=== PATIENT | female | born 1945 | race African-American/Black ===

== ENCOUNTER 2018-06-21 05:42 | Emergency (ER) | payer OTHER, MEDICAID ==
[~2018-06-21] VITALS: Ht 167.6 cm; Wt 73.5 kg
[~2018-06-21 05:42] MED LIST: ASPIRIN ADULT L81 M1; CALCITRIOL0.25 MCG PO; D PO; KEP500 PO; LASIX40 MG PO; LOP50 PO; NEPHRO-VITE VITA1 EA PO; NEU300 PO; NEURONTIN300 PO; NIFEDICAL XL PO; PILOCARPINE5 MG PO; PRI20 PO; PROAIR HFA0.09 MG/A1; PROCARDIA PO; SIMVASTATIN20 MG PO; SYMBICORT 10.10.2 M1; SYMBICORT1 AE2; T3 PO; TOP100 PO; TUDORZA PR400 MCG/A1 IH; VENTOLIN H0.09 MG/A1; VITAMIN D22000 I1 PO; VITAMIN D22000 IU PO
[2018-06-21 05:50] VITALS: Ht 167.6 cm; Wt 73.5 kg
[2018-06-21 07:15] LABS: PLATELET COUNT 166 x10^3mcL (130-400)
[2018-06-21 07:16] LABS: RED CELL DISTRIBUTION WIDTH 16.2 % (11.5-14.5)
[2018-06-21 07:33] LABS: ALBUMIN 3.6 g/dL (3.4-5.0); BILIRUBIN TOTAL 0.3 mg/dL (0.20-1.00); CALCIUM 8.1 mg/dL (8.5-10.1); CARBON DIOXIDE 26.4 mmol/L (21-32); MAGNESIUM 2.4 mg/dL (1.8-2.4); POTASSIUM SERUM 4.3 mmol/L (3.5-5.1); T4(THYROXINE) 7.3 ug/dL (4.7-13.3); TOTAL PROTEIN, SERUM 7.5 g/dL (6.4-8.2)
[2018-06-21 07:35] LABS: CREATININE SERUM 8.1 mg/dL (0.6-1.0)
[2018-06-21] MEDS ORDERED: CALCITRIOL0.25 MCG PO (07:42)
[2018-06-21] MEDS ORDERED: GABAPENTIN100 M2 PO (07:43)
[2018-06-21] MEDS ORDERED: KEFLEX250 M1 PO (07:43)
[2018-06-21] MEDS ORDERED: KEPPRA500 MG PO (07:43)
[2018-06-21] MEDS ORDERED: METOPROLOL TART50 MG PO (07:44)
[2018-06-21] MEDS ORDERED: SAL5 PO (07:44)
[2018-06-21] MEDS ORDERED: PRO60 PO (07:44)
[2018-06-21] MEDS ORDERED: SIMVASTATIN20 M1 PO (07:45)
[2018-06-21] MEDS ORDERED: TOPAMAX100 MG PO (07:45)
[2018-06-21] MEDS ORDERED: ELIQUIS2.5 MG PO (07:46)
[2018-06-21] MEDS ORDERED: BUPROPION HCL150 M1 PO (07:47)
[2018-06-21] MEDS ORDERED: MIACALCIN200 IU/ML (07:48)
[2018-06-21 08:31] VITALS: BP 142/71
[2018-06-21 09:45] LABS: ATYPICAL LYMPH 6 %; BAND NEUTROPHIL 1 % (0-10); BASOPHIL 0 % (0-2); MONOCYTE 5 % (0-7); SEGMENTED NEUTROPHILS 72 % (37-75)
[2018-06-21 09:46] LABS: PLATELET MORPHOLOGY PLATELETS DECREASED
[2018-06-21 09:47] LABS: rbc morphology (normal/abnorm) ABNORMAL (NORMAL)
== END 2018-06-21 10:12 | disposition home or self-care (01) ==
LOC: ED 05:42
PROVIDERS: Emergency Medicine
DX: R60.0 Localized edema (principal); R94.31 Abnormal electrocardiogram [ECG] [EKG]; E78.00 Pure hypercholesterolemia, unspecified; M06.9 Rheumatoid arthritis, unspecified; M10.9 Gout, unspecified; F17.210 Nicotine dependence, cigarettes, uncomplicated; I12.0 Hypertensive chronic kidney disease with stage 5 chronic kidney disease or end stage renal disease; N18.6 End stage renal disease; Z99.2 Dependence on renal dialysis; Z90.710 Acquired absence of both cervix and uterus; Z90.49 Acquired absence of other specified parts of digestive tract; Z88.8 Allergy status to other drugs, medicaments and biological substances; Z88.6 Allergy status to analgesic agent
CPT/HCPCS: 82962; 83880; 99406; J1940; Q0092